=== PATIENT | female | born 1940 | race Caucasian/White ===

== ENCOUNTER → 2018-10-05 | Day surgery (SDC) | payer MEDICARE ==
[~2018-10-05] MED LIST: ARICEPT5 MG PO; CLARITIN10 M2 PO; DOCUSATE SODIU100 MG PO; FUROSEMIDE40 MG PO; METFORMIN HCL500 MG PO; NITROQUICK0.4 M1 SL; PLAVIX75 MG PO; POTASSIUM CHLO20 ME1 PO; RED YEAST RICE E1 GM PO; SODIUM CHLORIDE 0.9% 1000ML 1,000 ML ONE; SOTALOL80 MG PO; VITAMIN D1000 UNI1 PO; Z FELODIPINE PO; Z.0.AMARYL4 MG PO; Z.0.ASPIRIN CHEW81 M PO; Z.0.EFFIENT10 MG PO; Z.0.LANTUS100 UNIT/1 SQ; Z.0.LIPITOR40 MG PO; [UNRECOGNIZED DRUG - OTHER] PO
--- OUTSIDE RECORDS SUMMARY | 2018-10-05 09:37 | XMS REPORT ---
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 Allergies, Adverse Reactions, Alerts Allergy Name Allergy Type Status Severity Reaction(s) Onset Date Inactive Date Treating Clinician Comments codeine DA Active SV 2018-09-30 00:00:00 piroxicam DA Active U 2018-09-30 00:00:00 cefaclor DA Active SV 2018-09-30 00:00:00 celecoxib DA Active VT 2018-09-30 00:00:00 codeine DA Active SV 2013-03-23 00:00:00 piroxicam DA Active U 2013-03-23 00:00:00 cefaclor DA Active SV 2013-03-23 00:00:00 celecoxib DA Active VT 2013-03-23 00:00:00 Medications This patient has no known medications. Results Test Description Test Time Test Comments Text Results Atomic Results Result Comments PROTHROMBIN TIME 2018-09-30 11:08:00 PROTHROMBIN TIME PATIENT (test code=PTP) 18.9 seconds 9.0-14.0 INTERNATIONAL NORMAL RATIO (test code=INR) 1.6 0.8-1.2 The therapeutic range for oral anticoagulant therapy formost indications is an international normalized ratio (INR)of between 2.0 and 3.0. The recommended therapeutic INRrange for various clinical situations is listed below: Clinical Situation INR range Pulmonary e mbolism treatment (2.0-3.0)Venous thrombosis treatmentVenous thrombosis prophylaxis (high risk surgery)Prevention of systemic embolism from: Acute myocardial infarction Valvular heart disease Atrial fibrillation Mechanical prosthetic heart valves (2.5-3.5) IS PATIENT ON ANTICOAGULANTS? NTHROMBOPLASTIN TIME [id number] 11:08:00* Test Item Value Reference Range Comments THROMBOPLASTIN TIME PARTIAL (test code=PTT) 46.0 seconds 25.0-36.5 IS PATIENT ON ANTICOAGULANTS? NBASIC METABOLIC [id number] 11:00:00* Test Item Value Reference Range Comments SODIUM (test code=NA) 143 mmol/L 136-145 POTASSIUM (test code=K) 3.7 mmol/L 3.5-5.1 CHLORIDE (test code=CL) 110.0 mmol/L 98-107 CARBON DIOXIDE (test code=CO2) 26.0 mmol/L 21-32 ANION GAP (test code=GAP) 10.7 10-20 GLUCOSE (test code=GLU) 116 mg/dL 74-106 BLOOD UREA NITROGEN (test code=BUN) 11 mg/dL 7-18 GLOMERULAR FILTRATION RATE (test code=GFR) > 60 mL/min >=60 Estimated GFR by using Modified MDRD formula.Chronic kidney disease is defined as either kidney damageor GFR <60 mL/min/1.73 m2 for >3 months. CREATININE (test code=CREAT) 0.50 mg/dL 0.55-1.02 Note change in reference range due to change in reagent. BUN/CREATININE RATIO (test code=BUN/CREA) 22.0 10-20 CALCIUM (test code=CA) 9.3 mg/dL 8.5-10.1 BASIC METABOLIC [id number] 10:54:00* Test Item Value Reference Range Comments SODIUM (test code=NA) 143 mmol/L 136-145 POTASSIUM (test code=K) 3.7 mmol/L 3.5-5.1 CHLORIDE (test code=CL) 110.0 mmol/L 98-107 CARBON DIOXIDE (test code=CO2) mmol/L 21-32 ANION GAP (test code=GAP) 10-20 GLUCOSE (test code=GLU) mg/dL 74-106 BLOOD UREA NITROGEN (test code=BUN) mg/dL 7-18 GLOMERULAR FILTRATION RATE (test code=GFR) mL/min >=60 CREATININE (test code=CREAT) mg/dL 0.55-1.02 BUN/CREATININE RATIO (test code=BUN/CREA) 10-20 CALCIUM (test code=CA) mg/dL 8.5-10.1 CBC W/AUTO [id number] 10:39:00* Test Item Value Reference Range Comments WHITE BLOOD CELL (test code=WBC) 5.1 K/mm3 4.5-12.5 RED BLOOD CELL (test code=RBC) 4.33 mill/mm3 3.7-5.2 HEMOGLOBIN (test code=HGB) 13.2 gram/dL 11.5-15.5 HEMATOCRIT (test code=HCT) 40.7 % 36.0-46.0 MEAN CELL VOLUME (test code=MCV) 94.0 fL 80-98 MEAN CELL HGB (test code=MCH) 30.5 picogram 27.0-33.0 MEAN CELL HGB CONCETRATION (test code=MCHC) 32.4 gram/dL 33.0-36.0 RED CELL DISTRIBUTION WIDTH (test code=RDW) 14.8 % 11.6-16.2 RED CELL DISTRIBUTION WIDTH SD (test code=RDW-SD) 51.1 fL 37.0-51.0 PLATELET COUNT (test code=PLT) 141 K/mm3 150-450 MEAN PLATELET VOLUME (test code=MPV) 10.1 fL 6.7-11.0 NEUTROPHIL % (test code=NT%) 51.0 % 39.0-69.0 IMMATURE GRANULOCYTE % (test code=IG%) 0.2 % 0.0-5.0 LYMPHOCYTE % (test code=LY%) 37.9 % 25.0-55.0 MONOCYTE % (test code=MO%) 7.3 % 0.0-10.0 EOSINOPHIL % (test code=EO%) 3.0 % 0.0-5.0 BASOPHIL % (test code=BA%) 0.6 % 0.0-1.0 NUCLEATED RBC % (test code=NRBC%) 0.0 % 0-0 NEUTROPHIL # (test code=NT#) 2.59 K/mm3 1.8-7.7 IMMATURE GRANULOCYTE # (test code=IG#) 0.01 x10 3/uL 0-0.03 LYMPHOCYTE # (test code=LY#) 1.92 K/mm3 1.0-5.0 MONOCYTE # (test code=MO#) 0.37 K/mm3 0-0.8 EOSINOPHIL # (test code=EO#) 0.15 K/mm3 0.0-0.5 BASOPHIL # (test code=BA#) 0.03 K/mm3 0.0-0.2 NUCLEATED RBC # (test code=NRBC#) 0.00 K/mm3 0.0-0.1 MANUAL DIFF REQUIRED (test code=MDIFF) NO
--- NOTE | 2018-10-05 10:30 | NUR ---
Received report from Praveena SILVERMAN and assume responsibility of Pre-op. Pt interviewed for scheduled procedure. family speaking for pt due to established dementia and lack fo cochlear implant. reviewed of medical history and medications. Orders submitted day of procedure and previous booking of procedure not consistent. Reached out to admissions. Doppler study currently underway. - f
[2018-10-05 11:00] VITALS: BP 122/76
--- NOTE | 2018-10-05 11:15 | NUR ---
Admissions process complete. Taryn care provided with difficulty in maneuvering legs. interview complete discussion ensued regarding pt ability to lay flight. Family and primary summer child caregiver adamant regarding ability to lay flat. family matter of fact states " you try to straiten her legs out , you will break them. her knees do not bend without hurting her". family wanting to speak with Dr Leonard prior to procedure to clarify if the "blood clot" is going to be "dripped". Dr Leonard office contacted.
--- NOTE | 2018-10-05 11:35 | NUR ---
Spoke with DR Leonard of physical findings. Dr Leonard to see patient to determine POC.
--- NOTE | 2018-10-05 11:45 | NUR ---
Family not wanting patient to be "stuck" for IV or blood work till clarification of procedure. - cgf
== END | disposition home or self-care (01) ==
LOC: CATH LAB 09:35
PROVIDERS: ATTEND Internal Medicine Cardiovascular Disease
DX: I73.9 Peripheral vascular disease, unspecified (principal); I82.412 Acute embolism and thrombosis of left femoral vein; I82.432 Acute embolism and thrombosis of left popliteal vein; I82.890 Acute embolism and thrombosis of other specified veins; M24.562 Contracture, left knee; M24.561 Contracture, right knee; I69.320 Aphasia following cerebral infarction; I10 Essential (primary) hypertension; I25.10 Atherosclerotic heart disease of native coronary artery without angina pectoris; E11.9 Type 2 diabetes mellitus without complications; Z79.02 Long term (current) use of antithrombotics/antiplatelets; Z79.84 Long term (current) use of oral hypoglycemic drugs; Z53.8 Procedure and treatment not carried out for other reasons
CPT/HCPCS: 93971; J7030